=== PATIENT | female | born 1980 | race Caucasian/White ===

== ENCOUNTER 2023-06-18 11:58 | Emergency (ER) | payer BC, OTHER ==
[2023-06-18 12:18] VITALS: TEMP 98.4; O2SAT 100
--- NOTE | 2023-06-18 13:08 | XRAY ---
Indication: Left rib pain following injury. Comparison: None Frontal chest and 2 view left ribs negative for acute fracture or suspicious bone lesions. Chest demonstrates normal heart and lungs with a few right lung calcified granulomas. Bony thorax intact with minimal double curvature scoliosis. Incidental bilateral nipple jewelry and left upper quadrant abdominal suture material.
--- NOTE | 2023-06-18 13:27 | ERPHSYRPT ---
- History of Present Illness Time Seen by Provider: 06/18/23 11:59 Source: patient Exam Limitations: no limitations Patient Subjective Stated Complaint: pt throws her rib out of place occassionally and she was loading a cooler on Thursday at work and threw it out and went to the chiropractor on Thursday and Thursday and he adjusted her and she thinks that maybe a rib got cracked, pt went back on Thursday and the chiropractor taped her ribs Triage Nursing Assessment: Pt brought to the ER by her sister, vitals wnl, rates pain as 5/10, pulses normal, skin n/w/d, hurts to breath and take a deep breath, pt states that it is one of the lower ribs on the left and it hurts on the lateral and back side, pt walked into the ER with a slow steady gait Physician History: 43 years old female with history of scoliosis with occasional chest wall/rib strains after heavy lifting needing chiropractor readjustment presented in the ER after she lifted heavy objects few days ago and seems like she is having some misalignment of her ribs on the left side. Patient denies any midline back pain but pain is more in the posterolateral aspect of left mid to lower chest wall. She has been to chiropractor 3 times but does not seem helping much. It hurts to move, take a deep breath, bend over and better with being still. No difficulty breathing otherwise. No chest pain otherwise. Symptoms are similar to previous. Patient wants to make sure she does not have any fractured ribs. She has Norflex and ibuprofen which did help in the past. Allergies/Adverse Reactions: No Known Drug Allergies Allergy (Verified 06/18/23 12:18) Home Medications: Atomoxetine HCl [Strattera] 25 mg PO DAILY 06/18/23 [History] Buspirone HCl 15 mg PO TID 06/18/23 [History] Cariprazine HCl [Vraylar] 3 mg PO DAILY 06/18/23 [History] Estradiol 1 mg [Estrace 1 mg] 1 mg PO DAILY 06/18/23 [History] Gabapentin [Neurontin] 800 mg PO QID 06/18/23 [History] Orphenadrine Citrate 100 mg [Norflex 100 MG Tablet] 100 mg PO BID 06/18/23 [History] Topiramate 100 mg PO BID 06/18/23 [History] cloNIDine HCL 2 mg PO DAILY 06/18/23 [History] Hx Influenza Vaccination/Date Given: No Hx Pneumococcal Vaccination/Date Given: No Travel Risk - International Travel Have you traveled outside of the country in past 3 weeks: No - Emerging Infectious Disease Are you exhibiting symptoms associated with any current EIDs: No - Review of Systems Constitutional: No Symptoms Ears, Nose, & Throat: No Symptoms Respiratory: No Symptoms Cardiac: Chest Pain Abdominal/Gastrointestinal: No Symptoms Genitourinary Symptoms: No Symptoms Musculoskeletal: No Symptoms Skin: No Symptoms Neurological: No Symptoms Hematologic/Lymphatic: No Symptoms Immunological/Allergic: No Symptoms - Past Medical History Pertinent Past Medical History: Yes Respiratory History: Asthma Psycho-Social History: Anxiety, Depression 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 - Past Surgical History Past Surgical History: Yes Musculoskeletal: Orthopedic Surgery Female Surgical History: Hysterectomy, Section Other Surgical History: back surgery Significant Family History: no pertinent family hx - Female History Hx Now: No - Social History Smoking Status: Current every day smoker Exposure to second hand smoke: Yes Drug Use: marijuana - Nursing Vital Signs Nursing Vital Signs: Initial Vital Signs Temperature 98.4 F 06/18/23 12:09 Pulse Rate 71 06/18/23 12:09 Blood Pressure 117/75 06/18/23 12:09 O2 Sat by Pulse Oximetry 100 06/18/23 12:09 Pain Scale Pain Intensity 5 - Physical Exam General Appearance: no apparent distress, alert Ears, Nose, Throat Exam: normal ENT inspection Neck Exam: normal inspection, non-tender, supple, full range of motion Respiratory Exam: normal breath sounds, chest tenderness (left lateral/posterior mid to lower ribs tenderness), lungs clear Cardiovascular Exam: regular rate/rhythm, normal heart sounds Back Exam: normal inspection, normal range of motion, muscle spasm, No vertebral tenderness Extremity Exam: normal inspection, normal range of motion Neurologic Exam: alert, oriented x 3, cooperative, detail manager II-XII nml as tested Skin Exam: normal color SpO2 Interpretation: normal SpO2: 100 O2 Delivery: Room Air Ordered Tests: Active Orders 24 hr Category Date Time Status RIBS UNILATERAL W/ PA CXR Stat Exams 06/18/23 12:11 Completed Medication Summary Discontinued Medications Generic Name Dose Route Start Last Admin Trade Name Freq PRN Reason Stop Dose Admin Ketorolac Tromethamine 30 mg 06/18/23 13:04 06/18/23 13:40 Ketorolac Tromethamine 30 Mg/Ml Inj IM 06/18/23 13:05 30 mg STAT ONE Administration Ketorolac Tromethamine Confirm 06/18/23 13:40 Ketorolac Tromethamine 30 Mg/Ml Inj Administered 06/18/23 13:41 Dose 30 mg .ROUTE .STK-MED ONE - Progress Progress: improved Progress Note: 06/18/23 13:48 43 years old is evaluated for left rib pain after lifting heavy stuff few days ago. Patient has similar symptoms multiple times in the past. Patient has rib tenderness, no flail segment. Lungs bilateral clear to auscultation. No midline tenderness. No tachypnea or tachycardia. She is given symptomatic treatment for pain. X-rays chest and rib series negative for acute fracture, pneumothorax, hemothorax or any other acute findings. I believe patient has rib/chest wall strain, recommended supportive care and outpatient follow-up. Discussed signs symptoms of worsening needing return to ER which she seems understanding. It is a clear musculoskeletal, do not think needs any other workup. Counseled pt/family regarding: lab results, diagnosis, need for follow-up, rad results Medical Desision Making - Diagnostic Testing Diagnostic test were ordered, analyzed, and reviewed by me: Yes Radiological Interpretation: Interpreted by me, Reviewed by me - Risk of complications The pt has a mod risk of morbidity or mortality based on: Need for prescription drug management - Departure Departure Disposition: Home Clinical Impression: Chest wall muscle strain Condition: Stable Critical Care Time: No Referrals: KALEE MELENDEZ MD [Primary Care Provider] - Follow up/PCP as directed Instructions: Muscle Strain (DC) Additional Instructions: take Tylenol/ibuprofen as needed. Follow-up with primary care for reevaluation. Return to ER for intractable pain, difficulty breathing etc. Prescriptions: Ibuprofen 600 mg PO Q6HPRN PRN 10 Days #20 tablet PRN Reason: Pain
[2023-06-18] MEDS ORDERED: TORAdol 30 mg Injection ONE (13:40)
[2023-06-18] MEDS: TORAdol 30 mg Injection IM ONE (13:40)
[2023-06-18 14:20] VITALS: BP 119/61; PULSE 61
== END 2023-06-18 14:21 | disposition home or self-care (01) ==
LOC: ED 11:58
DX: S29.011A Strain of muscle and tendon of front wall of thorax, initial encounter (principal); R07.81 Pleurodynia
CPT/HCPCS: 71101; 96372; 99283; J1885

== ENCOUNTER 2024-05-05 20:59 | Emergency (ER) | payer BC ==
[2024-05-05 21:09] VITALS: TEMP 98.1
[2024-05-05] MEDS ORDERED: BABY ASPIRIN 81 MG CHEW ONE (21:52)
[2024-05-05] MEDS: BABY ASPIRIN 81 MG CHEW PO ONE (21:53)
[2024-05-05 22:05] LABS: Absolute Neutrophil Ct (ANC) 4.27 x10^3/uL (1.56-6.13); BASOPHIL % 0.5 % (0.1-1.2); Basophil (Absolute #) 0.04 x10^3/uL (0.01-0.08); Eosinophil % 1.7 % (0.7-5.8); Eosinophil (Absolute #) 0.14 x10^3/uL (0.04-0.36); Hematocrit 41.4 % (34.1-44.9); Hemoglobin 14.3 g/dL (11.2-15.7); IMMATURE GRAN # 0.02 x10^3u/L (0.001-0.031); IMMATURE GRAN % 0.2 % (0.001-0.429); Lymphocyte (Absolute #) 2.78 x10^3/uL (1.18-3.74); Lymphocytes % 34.4 % (19.3-51.7); Mean Cell Volume 86.6 fL (79.4-94.8); Mean Corpuscular Hemoglobin 29.9 pg (25.6-32.2); Mean Corpuscular Hgb Concent. 34.5 g/dL (32.2-35.5); Mean Platelet Volume 10.7 fL (9.4-12.3); Monocyte (Absolute #) 0.84 x10^3/uL (0.24-0.86); Monocytes % 10.4 % (4.7-12.5); Neutrophil % 52.8 % (34.0-71.1); Platelet Count 292 x10^3/uL (182-369); Red Blood Count 4.78 x10^6/uL (3.93-5.22); White Blood Count 8.1 x10^3/uL (3.98-10.04)
[2024-05-05 22:14] VITALS: O2SAT 97
[2024-05-05] MEDS ORDERED: DUONEB 0.5-3 MG/3 ml Neb IH ONE (22:20)
[2024-05-05 22:21] LABS: ALBUMIN 4.4 g/dL (3.5-5.0); ANION GAP 12.8 MEQ/L (5-15); BILIRUBIN,TOTAL 0.5 mg/dL (0.2-1.3); Creatinine 1 0.65 mg/dL (0.52-1.04); EST GLOMERULAR FILTRATION RATE 112.7 ML/MIN; MAGNESIUM 2.2 mg/dL (1.6-2.3); Potassium 3.2 mmol/L (3.5-5.1)
[2024-05-05] MEDS: DUONEB 0.5-3 MG/3 ml Neb IH ONE (22:21)
[2024-05-05 22:32] LABS: NT PRO BNPII 84.8 pg/mL (<300); TROPONIN < 0.012 ng/mL (0.000-0.033)
[2024-05-05 22:41] LABS: INFLUENZA A NEGATIVE (NEGATIVE); INFLUENZA B NEGATIVE (NEGATIVE); RESPIRATORY SYNCTIAL VIRUS NEGATIVE (NEGATIVE); SARS-CoV-2 Xpert Express NEGATIVE (NEGATIVE)
--- NOTE | 2024-05-05 22:55 | ERPHSYRPT ---
- History of Present Illness Time Seen by Provider: 05/05/24 21:27 Historian: patient, family Exam Limitations: no limitations Patient Subjective Stated Complaint: "I saw Dr. Melendez today but then after I left I started to get anxious and short of breath. That was about 5 hours ago and it hasn't went away". Triage Nursing Assessment: Pt presents to ER with complaints of shortness of breath and mild chest pains in left chest that began after seeing her PCP Deejay this afternoon around 1600. Pt is alert and oriented x 3. Skin is pink, warm, and dry. Respirations are easy at this time. Afebrile. Pain is rated 2/10 scale, mild and intermittent. Complains of nausea. Denies vomiting and diarrhea. Pt is able to ambulate and communicate without difficulty. Lungs clear, bilateral lower leg swelling noted. Physician History: 43 years old female with history of anxiety/depression/migraine/ADD presented in the ER with complains of sudden onset shortness of breath around 4:30 PM after she saw her primary care followed by his some left-sided chest discomfort. Patient reports dull aching pain in the left chest which lasted for few minutes and started to improve but still have mild discomfort. Reports feeling short of breath earlier while holding conversation but is better now. Denies any palpitations. Denies any recent fever chills or cough. No history of coronary artery disease. No family history of coronary artery disease. No history of DVT or PEs. Nitro Today/Relief: no nitro taken today Aspirin Treatment Today: no aspirin today Allergies/Adverse Reactions: No Known Drug Allergies Allergy (Verified 05/05/24 21:10) Home Medications: Buspirone HCl 15 mg PO TID 06/18/23 [History] Cariprazine HCl [Vraylar] 3 mg PO DAILY 06/18/23 [History] Estradiol 1 mg [Estrace 1 mg] 1 mg PO DAILY 06/18/23 [History] Gabapentin [Neurontin] 800 mg PO BID 06/18/23 [History] Topiramate 100 mg PO BID 06/18/23 [History] Bupropion HCl Xl 150 mg [Wellbutrin XL 150 MG] 150 mg PO DAILY 05/05/24 [History] Hydroxyzine HCl 25 mg [Atarax 25 mg] 25 mg PO Q8H 05/05/24 [History] Methylphenidate HCl [Jornay Pm] 40 mg PO HS 05/05/24 [History] Hx Tetanus, Diphtheria Vaccination/Date Given: No Hx Influenza Vaccination/Date Given: No Hx Pneumococcal Vaccination/Date Given: No Immunizations Up to Date: No Travel Risk - International Travel Have you traveled outside of the country in past 3 weeks: No - Emerging Infectious Disease Are you exhibiting symptoms associated with any current EIDs: Yes Symptoms: Shortness of Breath - Review of Systems Constitutional: No Symptoms Eyes: No Symptoms Ears, Nose, & Throat: No Symptoms Respiratory: Dyspnea Cardiac: Chest Pain Abdominal/Gastrointestinal: No Symptoms Genitourinary Symptoms: No Symptoms Musculoskeletal: No Symptoms Skin: No Symptoms Neurological: No Symptoms Psychological: Anxiety, Depression Endocrine: No Symptoms Hematologic/Lymphatic: No Symptoms - Past Medical History Pertinent Past Medical History: Yes Neurological History: No Pertinent History ENT History: No Pertinent History Cardiac History: No Pertinent History Respiratory History: Asthma Endocrine Medical History: No Pertinent History Musculoskeletal History: No Pertinent History GI Medical History: No Pertinent History History: No Pertinent History Psycho-Social History: Anxiety, Attention Deficit Disorder, Depression Female Reproductive Disorders: No Pertinent History 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 - Past Surgical History Past Surgical History: Yes Neuro Surgical History: No Pertinent History Cardiac: No Pertinent History Respiratory: No Pertinent History Gastrointestinal: Other Genitourinary: No Pertinent History Musculoskeletal: Orthopedic Surgery Female Surgical History: Hysterectomy, Section Other Surgical History: back surgery, x 3, gastric bypass Significant Family History: no pertinent family hx - Female History Hx Last Menstrual Period: N/A Hx Now: (unkn) - Social History Smoking Status: Current every day smoker Exposure to second hand smoke: Yes Drug Use: marijuana - Social Determinants of Health Will the patient participate in the screening: Yes Do you worry about a steady place to live?: No Do you have any problems with any of the following?: No known problems In the past 12 months,have you had to go without utilities?: No Transportation Issues: No Has anyone in your support network made you feel unsafe?: No Have you or anyone in your house had to go w/o enough food: No - Nursing Vital Signs Nursing Vital Signs: Initial Vital Signs Pulse Rate 75 05/05/24 21:01 Respiratory Rate 19 05/05/24 21:01 Blood Pressure 123/78 05/05/24 21:01 O2 Sat by Pulse Oximetry 97 05/05/24 21:01 Pain Scale Pain Intensity 0 - Physical Exam General Appearance: no apparent distress, alert, anxiety Eye Exam: PERRL/EOMI Ears, Nose, Throat Exam: normal ENT inspection Neck Exam: normal inspection, non-tender, supple, full range of motion Respiratory Exam: normal breath sounds, lungs clear Cardiovascular Exam: regular rate/rhythm, normal heart sounds Gastrointestinal/Abdomen Exam: soft, normal bowel sounds, No tenderness Extremity Exam: normal inspection, normal range of motion Neurologic Exam: alert, oriented x 3, cooperative, structural test engineer II-XII nml as tested Skin Exam: normal color SpO2 Interpretation: normal SpO2: 97 O2 Delivery: Room Air Ordered Tests: Active Orders 24 hr Category Date Time Status Senior Systems Engineer STAT Care 05/05/24 21:38 Active EKG-ER Only STAT Care 05/05/24 21:38 Active IV Insertion STAT Care 05/05/24 21:38 Active CHEST 1 VIEW (PORTABLE) Stat Exams 05/05/24 22:58 Taken CBC W DIFF Stat Lab 05/05/24 21:10 Completed CMP Stat Lab 05/05/24 21:10 Completed D-DIMER QUANTITATIVE Stat Lab 05/05/24 21:10 Completed MAGNESIUM Stat Lab 05/05/24 21:10 Completed NT PRO BNPII Stat Lab 05/05/24 21:10 Completed TROPONIN Q4H Lab 05/05/24 21:10 Completed TROPONIN Q4H Lab 05/05/24 23:20 Completed TROPONIN Q4H Lab 05/06/24 01:45 Ordered TROPONIN Q4H Lab 05/06/24 05:45 Ordered Respiratory Therapy Assessment DAILY RT 05/05/24 22:24 Active Medication Summary Discontinued Medications Generic Name Dose Route Start Last Admin Trade Name Freq PRN Reason Stop Dose Admin Albuterol/Ipratropium 3 ml 05/05/24 21:38 05/05/24 22:21 Ipratropium/Albuterol Sulfate 3 Ml Ampul.Neb IH 05/05/24 21:39 3 ml STAT ONE Administration Albuterol/Ipratropium Confirm 05/05/24 22:20 Ipratropium/Albuterol Sulfate 3 Ml Ampul.Neb Administered 05/05/24 22:21 Dose 3 ml IH .STK-MED ONE Aspirin 324 mg 05/05/24 21:38 05/05/24 21:53 Aspirin 81 Mg Tab.Chew PO 05/05/24 21:39 324 mg STAT ONE Administration Aspirin Confirm 05/05/24 21:52 Aspirin 81 Mg Tab.Chew Administered 05/05/24 21:53 Dose 324 mg .ROUTE .STK-MED ONE Ketorolac Tromethamine 30 mg 05/05/24 23:13 05/05/24 23:15 Ketorolac Tromethamine 30 Mg/Ml Inj IV 05/05/24 23:14 30 mg STAT ONE Administration Ketorolac Tromethamine Confirm 05/05/24 23:15 Ketorolac Tromethamine 30 Mg/Ml Inj Administered 05/05/24 23:16 Dose 30 mg .ROUTE .STK-MED ONE Lab/Rad Data: Laboratory Result Diagrams 05/05/24 21:10 05/05/24 21:10 Laboratory Results 05/05/24 05/05/24 05/05/24 Range/Units 23:20 21:50 21:10 WBC (3.98-10.04) x10^3/uL RBC (3.93-5.22) x10^6/uL Hgb (11.2-15.7) g/dL Hct (34.1-44.9) % MCV (79.4-94.8) fL MCH (25.6-32.2) pg MCHC (32.2-35.5) g/dL RDW (11.7-14.4) % Plt Count (182-369) x10^3/uL MPV (9.4-12.3) fL Gran % (34.0-71.1) % Immature Gran % (Auto) (0.001-0.429) % Nucleat RBC Rel Count (0.00-0.2) % Eos # (Auto) (0.04-0.36) x10^3/uL Immature Gran # (Auto) (0.001-0.031) x10^3u/L Absolute Lymphs (auto) (1.18-3.74) x10^3/uL Absolute Monos (auto) (0.24-0.86) x10^3/uL Absolute Nucleated RBC (0.00-0.012) x10^3u/L Lymphocytes % (19.3-51.7) % Monocytes % (4.7-12.5) % Eosinophils % (0.7-5.8) % Basophils % (0.1-1.2) % Absolute Granulocytes (1.56-6.13) x10^3/uL Basophils # (0.01-0.08) x10^3/uL D-Dimer < 0.19 (0.0-0.50) mg/L Sodium (135-145) mmol/L Potassium (3.5-5.1) mmol/L Chloride (98-107) mmol/L Carbon Dioxide (22-30) mmol/L Anion Gap (5-15) MEQ/L BUN (7-17) mg/dL Creatinine (0.52-1.04) mg/dL Estimated GFR ML/MIN Glucose (74-106) mg/dL Calcium (8.4-10.2) mg/dL Magnesium (1.6-2.3) mg/dL Total Bilirubin (0.2-1.3) mg/dL AST (14-36) U/L ALT (0-35) U/L Alkaline Phosphatase (38-126) U/L Troponin I < 0.012 (0.000-0.033) ng/mL NT-Pro-B Natriuret Pep (<300) pg/mL Serum Total Protein (6.3-8.2) g/dL Albumin (3.5-5.0) g/dL Influenza Type A Ag NEGATIVE (NEGATIVE) Influenza Type B Ag NEGATIVE (NEGATIVE) RSV (PCR) NEGATIVE (NEGATIVE) SARS-CoV-2 (PCR) NEGATIVE (NEGATIVE) 05/05/24 05/05/24 05/05/24 Range/Units 21:10 21:10 21:10 WBC 8.1 (3.98-10.04) x10^3/uL RBC 4.78 (3.93-5.22) x10^6/uL Hgb 14.3 (11.2-15.7) g/dL Hct 41.4 (34.1-44.9) % MCV 86.6 (79.4-94.8) fL MCH 29.9 (25.6-32.2) pg MCHC 34.5 (32.2-35.5) g/dL RDW 13.0 (11.7-14.4) % Plt Count 292 (182-369) x10^3/uL MPV 10.7 (9.4-12.3) fL Gran % 52.8 (34.0-71.1) % Immature Gran % (Auto) 0.2 (0.001-0.429) % Nucleat RBC Rel Count 0.0 (0.00-0.2) % Eos # (Auto) 0.14 (0.04-0.36) x10^3/uL Immature Gran # (Auto) 0.02 (0.001-0.031) x10^3u/L Absolute Lymphs (auto) 2.78 (1.18-3.74) x10^3/uL Absolute Monos (auto) 0.84 (0.24-0.86) x10^3/uL Absolute Nucleated RBC 0.00 (0.00-0.012) x10^3u/L Lymphocytes % 34.4 (19.3-51.7) % Monocytes % 10.4 (4.7-12.5) % Eosinophils % 1.7 (0.7-5.8) % Basophils % 0.5 (0.1-1.2) % Absolute Granulocytes 4.27 (1.56-6.13) x10^3/uL Basophils # 0.04 (0.01-0.08) x10^3/uL D-Dimer (0.0-0.50) mg/L Sodium 132 L (135-145) mmol/L Potassium 3.2 L (3.5-5.1) mmol/L Chloride 98 (98-107) mmol/L Carbon Dioxide 25 (22-30) mmol/L Anion Gap 12.8 (5-15) MEQ/L BUN 11 (7-17) mg/dL Creatinine 0.65 (0.52-1.04) mg/dL Estimated GFR 112.7 ML/MIN Glucose 84 (74-106) mg/dL Calcium 9.0 (8.4-10.2) mg/dL Magnesium 2.2 (1.6-2.3) mg/dL Total Bilirubin 0.50 (0.2-1.3) mg/dL AST 32 (14-36) U/L ALT 23 (0-35) U/L Alkaline Phosphatase 55 (38-126) U/L Troponin I < 0.012 (0.000-0.033) ng/mL NT-Pro-B Natriuret Pep 84.8 (<300) pg/mL Serum Total Protein 7.0 (6.3-8.2) g/dL Albumin 4.4 (3.5-5.0) g/dL Influenza Type A Ag (NEGATIVE) Influenza Type B Ag (NEGATIVE) RSV (PCR) (NEGATIVE) SARS-CoV-2 (PCR) (NEGATIVE) - Progress Progress: improved, re-examined Air Movement: good Progress Note: 05/05/24 23:59 43-year-old with history of ADD, anxiety/depression/migraine/tobacco use is evaluated in the ER for transient shortness of breath 5 hours ago with some chest discomfort. Patient has minimal chest discomfort on presentation. Patient is very anxious, does have some element of reproducibility with palpation. She is a low heart score. EKG is normal sinus rhythm with no acute ischemic changes. Has normal white count, fairly unremarkable chemistries, negative troponins x 2 and D-dimers. Chest x-ray is negative for any acute cardiopulmonary findings reviewed by me, final official report is pending. Patient is a low heart score, 2 negative troponin, no acute EKG changes, no acute cardiopulmonary findings on the chest x-ray, do not think patient needs further evaluation in the ER can be discharged with outpatient follow-up. I have shared the results of workup with patient and family and plan of discharge with outpatient follow-up which they understand and agree. Stable for discharge. Blood Culture(s) Obtained: No Antibiotics given: No Counseled pt/family regarding: lab results, diagnosis, need for follow-up, rad results, smoking cessation Medical Desision Making - Independent Historian Additional History obtained from: Family - Diagnostic Testing Diagnostic test were ordered, analyzed, and reviewed by me: Yes Radiological Interpretation: Interpreted by me, Reviewed by me - Risk of complications The pt has a mod risk of morbidity or mortality based on: Need for prescription drug management - Departure Clinical Impression: Atypical chest pain, Anxiety Condition: Stable Critical Care Time: No Referrals: KALEE MELENDEZ MD [Primary Care Provider] - Follow up with PCP 1 day DIONTE CUBA [CONSULTING PHYSICIAN] - Follow up/PCP as directed (Call for appointment for reevaluation) Instructions: Chest pain in adults - ED discharge instructions Additional Instructions: Take Tylenol/ibuprofen as needed. Do not smoke. Follow-up with primary care and cardiology for reevaluation. Return to ER for intractable chest pain or if having difficulty breathing etc.
[2024-05-05] MEDS: TORAdol 30 mg Injection IV ONE (23:15)
[2024-05-05] MEDS ORDERED: TORAdol 30 mg Injection ONE (23:15)
[2024-05-06 00:01] VITALS: BP 108/62; PULSE 80; RESP 18
--- NOTE | 2024-05-06 08:57 | XRAY ---
Indication: Chest pain. Comparison: February 13, 2021 Portable chest again demonstrates normal heart and lungs with incidental right lung calcified granuloma. Bony thorax intact. No new/acute findings.
== END 2024-05-06 | disposition home or self-care (01) ==
LOC: ED 20:59
DX: R07.89 Other chest pain (principal); F41.9 Anxiety disorder, unspecified; R06.02 Shortness of breath; Z79.899 Other long term (current) drug therapy; Z72.0 Tobacco use
CPT/HCPCS: 0241U; 36415; 71045; 80053; 83735; 83880; 84484; 85025; 85379; 93005; 93041; 94640; 96374; 99285; 99284; J1885; A9270-GY

== ENCOUNTER 2024-07-07 10:01 | Day surgery (SDC) | payer BC ==
[2024-07-07] MEDS ORDERED: D50W 50 ml Abboject IV ONE (10:02)
[2024-07-07] MEDS ORDERED: dexAMETHasone sodium phosphate IJ ONE (10:02)
[2024-07-07] MEDS ORDERED: Sodium Chloride 0.9(Preservative Free) 10 ML IJ ONE (10:02)
[2024-07-07] MEDS ORDERED: propofoL IV ONE (12:31)
[2024-07-07] MEDS ORDERED: Xylocaine-Mpf 2% 5 Ml Vial ONE (12:32)
--- NOTE | 2024-07-07 13:21 | XRAY ---
Indication: Left L3-L5 transforaminal NOLBERTO. Intraoperative fluoroscopy for right for 20 seconds. 4 digital spot image submitted for interpretation demonstrates posterior needle tips projecting over expected left L3 and L4 nerve roots. Small amount of contrast injected for needle tip placement. Correlate with intraoperative findings/report.
--- NOTE | 2024-07-07 13:22 | XRAY ---
20 seconds of fluoroscopy were used in surgery for a left L3-L5 transforaminal NOLBERTO.
== END 2024-07-07 12:55 | disposition home or self-care (01) ==
LOC: SDC-PAIN 10:01
PROVIDERS: ATTEND Psychiatry & Neurology Pain Medicine
DX: M54.16 Radiculopathy, lumbar region (principal)
CPT/HCPCS: 64483; 64484; 72100; 82947; J1100; J2704; Q9966

== ENCOUNTER 2024-07-08 12:50 | Emergency (ER) | payer BC ==
[2024-07-08 13:04] VITALS: TEMP 97.6
--- NOTE | 2024-07-08 13:37 | ERPHSYRPT ---
- History of Present Illness Historian: patient Exam Limitations: no limitations Patient Subjective Stated Complaint: Pt c/o of RUQ pain with constipation since Thursday and has taken Miralax, 2 suppositories, 2 doses of 2 oz of mag citrate Triage Nursing Assessment: Pt brought self to the ER, vitals wnl, rates pain as 8/10, pulses normal, skin n/w/d, bowel sounds heard in all 4, pt reports passing gas, small thin bowel produced this morning, pain with palpatation to the upper right and medial abdomen, no difficulties breathing, denies chest pain, nausea, doesn't appear to be in any distress Physician History: Patient has abdominal pain. Has been going on for about 5 or 6 days. She is status post aGastric bypass operation.Edgard said that she has pain mainly in the bladder area. She has had a couple small bowel movements over the last few days. She says that they are extremely small and they had to be forced.She does have symptoms concerning for small bowel obstruction.Has not had any fever or chills. Eating makes the pain worse. Nothing seems to really make it better.She is not throwing up but is nauseated.She has beenUnable to eat much at all.Pain is described as sharp and stabbing. Is mainly in the left upper quadrant and kind of goes over to the epigastric area.The patient has taken some mag citrate as well as suppositories andColace. Activities at Onset: other (Eating) Allergies/Adverse Reactions: bupropion [From Wellbutrin] Allergy (Verified 07/08/24 13:05) Home Medications: Buspirone HCl 15 mg PO TID 06/18/23 [History] Cariprazine HCl [Vraylar] 3 mg PO DAILY 06/18/23 [History] Estradiol 1 mg [Estrace 1 mg] 1 mg PO DAILY 06/18/23 [History] Hydroxyzine HCl 25 mg [Atarax 25 mg] 50 mg PO Q8H 05/05/24 [History] Methylphenidate HCl [Jia Pm] 60 mg PO HS 05/05/24 [History] Chlorthalidone 25 mg PO DAILY 07/08/24 [History] Dextromethorphan HBr/Bupropion [Auvelity ER 45-105 mg Tablet] 1 each PO DAILY 07/08/24 [History] Pregabalin 300 mg PO BID 07/08/24 [History] Hx Tetanus, Diphtheria Vaccination/Date Given: No Hx Influenza Vaccination/Date Given: No Hx Pneumococcal Vaccination/Date Given: No Travel Risk - International Travel Have you traveled outside of the country in past 3 weeks: No - Emerging Infectious Disease Are you exhibiting symptoms associated with any current EIDs: Yes Symptoms: Abdominal Pain - Review of Systems Constitutional: No Symptoms Respiratory: No Symptoms Cardiac: No Symptoms Genitourinary Symptoms: No Symptoms Skin: No Symptoms All Other Systems: Reviewed and Negative - Past Medical History Pertinent Past Medical History: Yes Neurological History: No Pertinent History ENT History: No Pertinent History Cardiac History: No Pertinent History Respiratory History: Asthma Endocrine Medical History: No Pertinent History Musculoskeletal History: No Pertinent History GI Medical History: No Pertinent History History: No Pertinent History Psycho-Social History: Anxiety, Attention Deficit Disorder, Depression Female Reproductive Disorders: No Pertinent History 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 - Past Surgical History Past Surgical History: Yes Neuro Surgical History: No Pertinent History Cardiac: No Pertinent History Respiratory: No Pertinent History Gastrointestinal: Other Genitourinary: No Pertinent History Musculoskeletal: Orthopedic Surgery Female Surgical History: Hysterectomy, Section Other Surgical History: back surgery, x 3, gastric bypass Significant Family History: no pertinent family hx - Female History Hx Last Menstrual Period: N/A Hx Now: No (hysterectomy) - Social History Smoking Status: Current every day smoker Exposure to second hand smoke: Yes Drug Use: marijuana - Social Determinants of Health Will the patient participate in the screening: Yes Do you worry about a steady place to live?: No Do you have any problems with any of the following?: No known problems In the past 12 months,have you had to go without utilities?: No Transportation Issues: No Has anyone in your support network made you feel unsafe?: No Have you or anyone in your house had to go w/o enough food: No - Nursing Vital Signs Nursing Vital Signs: Initial Vital Signs Temperature 97.6 F 07/08/24 12:54 Pulse Rate 94 H 07/08/24 12:54 Blood Pressure 125/79 07/08/24 12:54 O2 Sat by Pulse Oximetry 100 07/08/24 12:54 Pain Scale Pain Intensity 2 - Physical Exam General Appearance: no apparent distress Eye Exam: PERRL/EOMI Respiratory Exam: normal breath sounds Cardiovascular Exam: regular rate/rhythm Gastrointestinal/Abdomen Exam: distention, guarding, other (Patient had some tenderness in the left upper quadrant. It felt a little distended as well.) Pelvic Exam: not done Rectal Exam: deferred Back Exam: normal inspection Neurologic Exam: alert, oriented x 3, cooperative Skin Exam: normal color, warm, dry SpO2: 100 Ordered Tests: Active Orders 24 hr Category Date Time Status IV Insertion STAT Care 07/08/24 14:25 Active ABDOMEN AND PELVIS W CONTRAST [CT] Stat Exams 07/08/24 13:30 Completed CBC W DIFF Stat Lab 07/08/24 13:45 Completed CMP Stat Lab 07/08/24 13:45 Completed LIPASE Stat Lab 07/08/24 13:45 Completed Medication Summary Discontinued Medications Generic Name Dose Route Start Last Admin Trade Name Freq PRN Reason Stop Dose Admin Hydromorphone HCl 1 mg 07/08/24 14:22 07/08/24 14:56 Hydromorphone 1 Mg/1ml Inj IV 07/08/24 14:23 1 mg STAT ONE Administration Hydromorphone HCl Confirm 07/08/24 14:54 Hydromorphone 1 Mg/1ml Inj Administered 07/08/24 14:55 Dose 1 mg .ROUTE .CardiaLen-Natero ONE Lab/Rad Data: Laboratory Result Diagrams 07/08/24 13:45 07/08/24 13:45 Laboratory Results 07/08/24 07/08/24 Range/Units 13:45 13:45 WBC 10.3 H (3.98-10.04) x10^3/uL RBC 4.37 (3.93-5.22) x10^6/uL Hgb 12.5 (11.2-15.7) g/dL Hct 37.4 (34.1-44.9) % MCV 85.6 (79.4-94.8) fL MCH 28.6 (25.6-32.2) pg MCHC 33.4 (32.2-35.5) g/dL RDW 13.7 (11.7-14.4) % Plt Count 257 (182-369) x10^3/uL MPV 10.3 (9.4-12.3) fL Gran % 71.6 H (34.0-71.1) % Immature Gran % (Auto) 0.2 (0.001-0.429) % Nucleat RBC Rel Count 0.0 (0.00-0.2) % Eos # (Auto) 0.02 L (0.04-0.36) x10^3/uL Immature Gran # (Auto) 0.02 (0.001-0.031) x10^3u/L Absolute Lymphs (auto) 2.22 (1.18-3.74) x10^3/uL Absolute Monos (auto) 0.65 (0.24-0.86) x10^3/uL Absolute Nucleated RBC 0.00 (0.00-0.012) x10^3u/L Lymphocytes % 21.5 (19.3-51.7) % Monocytes % 6.3 (4.7-12.5) % Eosinophils % 0.2 L (0.7-5.8) % Basophils % 0.2 (0.1-1.2) % Absolute Granulocytes 7.40 H (1.56-6.13) x10^3/uL Basophils # 0.02 (0.01-0.08) x10^3/uL Sodium 130 L (135-145) mmol/L Potassium 3.7 (3.5-5.1) mmol/L Chloride 94 L (98-107) mmol/L Carbon Dioxide 25 (22-30) mmol/L Anion Gap 14.7 (5-15) MEQ/L BUN 8 (7-17) mg/dL Creatinine 0.49 L (0.52-1.04) mg/dL Estimated GFR 119.9 ML/MIN Glucose 120 H (74-106) mg/dL Calcium 9.0 (8.4-10.2) mg/dL Total Bilirubin 0.30 (0.2-1.3) mg/dL AST 35 (14-36) U/L ALT 32 (0-35) U/L Alkaline Phosphatase 44 (38-126) U/L Serum Total Protein 7.0 (6.3-8.2) g/dL Albumin 4.6 (3.5-5.0) g/dL Lipase 112 (23-300) U/L - Progress Progress: unchanged Progress Note: Patient was stable throughout stay. I was a bit worried about a bowel obstruction. I got a CT it showed that she just has a large stool burden. There is no signs of an obstruction. She had bowel sounds on exam and her abdomen was not horribly tender. Do not think she has a bowel obstruction. I think that she is just constipated. I am going to have her try some Suprep. I would probably have her drink half of the dose tonight and see how she does.She can drink the remainder in the morning if she needs it.Also in the differential was colitis diverticulitis, appendicitis, gastroenteritis. 07/08/24 15:48 Medical Desision Making - Risk of complications Low Risk: Low risk of morbidity from additional dx testing or treatment - Departure Departure Disposition: Home Clinical Impression: Constipation Condition: Stable Critical Care Time: No Referrals: AGNIESZKA HERNANDEZ, LAMINATION INSPECTOR [Primary Care Provider, UNKNOWN] - Follow up/PCP as directed Instructions: Constipation in adults Additional Instructions: Take the Suprep drink this evening before bed
[2024-07-08 13:50] LABS: BASOPHIL % 0.2 % (0.1-1.2); Basophil (Absolute #) 0.02 x10^3/uL (0.01-0.08); Eosinophil % 0.2 % (0.7-5.8); Eosinophil (Absolute #) 0.02 x10^3/uL (0.04-0.36); Hematocrit 37.4 % (34.1-44.9); Hemoglobin 12.5 g/dL (11.2-15.7); IMMATURE GRAN # 0.02 x10^3u/L (0.001-0.031); IMMATURE GRAN % 0.2 % (0.001-0.429); Lymphocyte (Absolute #) 2.22 x10^3/uL (1.18-3.74); Lymphocytes % 21.5 % (19.3-51.7); Mean Cell Volume 85.6 fL (79.4-94.8); Mean Corpuscular Hemoglobin 28.6 pg (25.6-32.2); Mean Corpuscular Hgb Concent. 33.4 g/dL (32.2-35.5); Mean Platelet Volume 10.3 fL (9.4-12.3); Monocyte (Absolute #) 0.65 x10^3/uL (0.24-0.86); Monocytes % 6.3 % (4.7-12.5); Neutrophil % 71.6 % (34.0-71.1); Platelet Count 257 x10^3/uL (182-369); Red Blood Count 4.37 x10^6/uL (3.93-5.22); Red Cell Distribution Width 13.7 % (11.7-14.4); White Blood Count 10.3 x10^3/uL (3.98-10.04)
[2024-07-08 13:53] VITALS: RESP 18
[2024-07-08 14:06] LABS: ALBUMIN 4.6 g/dL (3.5-5.0); ANION GAP 14.7 MEQ/L (5-15); BILIRUBIN,TOTAL 0.3 mg/dL (0.2-1.3); Creatinine 1 0.49 mg/dL (0.52-1.04); EST GLOMERULAR FILTRATION RATE 119.9 ML/MIN; Potassium 3.7 mmol/L (3.5-5.1)
[2024-07-08] MEDS ORDERED: Hydromorphone 1 mg/ml Injection ONE (14:54)
[2024-07-08] MEDS: Hydromorphone 1 mg/ml Injection IV ONE (14:56)
[2024-07-08 15:14] VITALS: PULSE 73
--- NOTE | 2024-07-08 15:36 | XRAY ---
Indication: Pain. Multiple contiguous axial images obtained through the abdomen and pelvis using 80 cc Isovue 370 contrast. Comparison: None Lung bases demonstrates mild bilateral dependent atelectasis and small right lower lobe calcified granuloma. No infiltrate or effusion. Heart not enlarged. Small hiatal hernia. Previous gastric bypass surgery. Noncontrasted stomach and bowel loops appear nonobstructed with normal appendix. There is moderate diffuse scattered colonic fecal debris. Hysterectomy reported. No free fluid/air. Remaining liver, gallbladder, pancreas, spleen, adrenal glands, kidneys, ureters, bladder, and aorta are unremarkable. No pathologic retroperitoneal lymphadenopathy. Osseous structures intact with incidental L4 limbus vertebrae and mild L5-S1 degenerative disc disease. No ventral or inguinal hernias. Impression: Moderate diffuse colonic fecal stasis. L5-S1 degenerative disc disease. Remaining CT abdomen/pelvis with contrast exam is negative.
[2024-07-08 15:51] VITALS: O2SAT 100
[2024-07-08 16:01] VITALS: BP 106/52
== END 2024-07-08 16:02 | disposition home or self-care (01) ==
LOC: ED 12:50
DX: K59.00 Constipation, unspecified (principal); R10.12 Left upper quadrant pain; Z79.899 Other long term (current) drug therapy; Z98.84 Bariatric surgery status; Z72.0 Tobacco use
CPT/HCPCS: 36415; 74177; 80053; 83690; 85025; 96374; 99284; 99285; J1171

== ENCOUNTER 2024-12-19 10:39 | Emergency (ER) | payer BC ==
[2024-12-19 11:00] VITALS: TEMP 97.9
[2024-12-19] MEDS ORDERED: Zofran 4 MG/2 ML VIAL ONE (11:03)
[2024-12-19] MEDS ORDERED: MORPHINE SULFATE 4 MG INJ ONE (11:03)
--- NOTE | 2024-12-19 11:04 | ERPHSYRPT ---
- History of Present Illness Patient Subjective Stated Complaint: patient stated that she has had diarrhea since 0200, patient states that she thought it might have been the food that she had ate, patient states she has a headache and feels twitchy Triage Nursing Assessment: patient presents to ed via private vehicle, patient able to ambulate into ed without complication, patient alert and oriented x 4, skin p/w/d, patient has complaints of abdominal pain and headache, bowel sounds active x 4 quadrants, abdomen soft/nondistended, tender upon palpation; however patient states no more than normal, patient denies chest pain, states she feels a little short of breath, oxygen saturation upon arrival 96% on room air Physician History: Abdominal pain, onset of symptoms yesterday, she has had associated diarrhea, no nausea or vomiting, she has known history of gastric bypass surgery in the past, She also has a severe headache secondary to the pain that she is presenting with Timing/Duration: yesterday Abdominal Pain Onset Location: RUQ, LUQ, epigastric Pain Radiation: no radiation Severity of Pain-Max: severe Severity of Pain-Current: severe Associated Symptoms: denies symptoms Allergies/Adverse Reactions: bupropion [From Wellbutrin] Allergy (Verified 12/19/24 10:53) Home Medications: Buspirone HCl 15 mg PO TID 06/18/23 [History] Cariprazine HCl [Vraylar] 3 mg PO DAILY 06/18/23 [History] Estradiol 1 mg [Estrace 1 mg] 1 mg PO DAILY 06/18/23 [History] Hydroxyzine HCl 25 mg [Atarax 25 mg] 50 mg PO Q8H 05/05/24 [History] Methylphenidate HCl [Joangie Pm] 60 mg PO HS 05/05/24 [History] Chlorthalidone 25 mg PO DAILY 07/08/24 [History] Dextromethorphan HBr/Bupropion [Auvelity ER 45-105 mg Tablet] 1 each PO DAILY 07/08/24 [History] Pregabalin 300 mg PO BID 07/08/24 [History] Hx Tetanus, Diphtheria Vaccination/Date Given: Yes Hx Influenza Vaccination/Date Given: No Hx Pneumococcal Vaccination/Date Given: No Travel Risk - International Travel Have you traveled outside of the country in past 3 weeks: No - Emerging Infectious Disease Are you exhibiting symptoms associated with any current EIDs: No Symptoms: Abdominal Pain - Past Medical History Pertinent Past Medical History: Yes Neurological History: No Pertinent History ENT History: No Pertinent History Cardiac History: No Pertinent History Respiratory History: Asthma Endocrine Medical History: No Pertinent History Musculoskeletal History: No Pertinent History GI Medical History: No Pertinent History History: No Pertinent History Psycho-Social History: Anxiety, Attention Deficit Disorder, Depression Female Reproductive Disorders: No Pertinent History 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 patient on antibiotic at this time for - Past Surgical History Past Surgical History: Yes Neuro Surgical History: No Pertinent History Cardiac: No Pertinent History Respiratory: No Pertinent History Gastrointestinal: Other Genitourinary: No Pertinent History Musculoskeletal: Orthopedic Surgery Female Surgical History: Hysterectomy, Section Other Surgical History: back surgery, x 3, gastric bypass Significant Family History: no pertinent family hx - Female History Hx Last Menstrual Period: N/A Hx Now: No - Social History Smoking Status: Current every day smoker Exposure to second hand smoke: Yes Drug Use: none - Social Determinants of Health Will the patient participate in the screening: Yes Do you worry about a steady place to live?: No Do you have any problems with any of the following?: No known problems In the past 12 months,have you had to go without utilities?: No Transportation Issues: No Has anyone in your support network made you feel unsafe?: No Have you or anyone in your house had to go w/o enough food: No - Nursing Vital Signs Nursing Vital Signs: Initial Vital Signs Temperature 97.9 F 12/19/24 10:39 Pulse Rate 76 12/19/24 10:39 Respiratory Rate 20 12/19/24 10:39 Blood Pressure 125/81 12/19/24 10:39 O2 Sat by Pulse Oximetry 96 12/19/24 10:39 Pain Scale Pain Intensity 4 - Physical Exam General Appearance: no apparent distress, alert Eye Exam: PERRL/EOMI, eyes nml inspection Ears, Nose, Throat Exam: normal ENT inspection, pharynx normal, moist mucous membranes Neck Exam: normal inspection, non-tender, supple, full range of motion Respiratory Exam: normal breath sounds, lungs clear, No respiratory distress Cardiovascular Exam: regular rate/rhythm, normal heart sounds Gastrointestinal/Abdomen Exam: soft, tenderness (upper ), No mass, No guarding, No rebound, No hepatomegaly, No splenomegaly Back Exam: normal inspection, normal range of motion, No CVA tenderness, No vertebral tenderness Extremity Exam: normal inspection, normal range of motion, pelvis stable Neurologic Exam: alert, oriented x 3, cooperative, normal mood/affect, nml cerebellar function, sensation nml, No motor deficits Skin Exam: normal color, warm, dry SpO2 Interpretation: normal SpO2: 97 Ordered Tests: Active Orders 24 hr Category Date Time Status IV Insertion STAT Care 12/19/24 10:59 Active ABDOMEN AND PELVIS W CONTRAST [CT] Stat Exams 12/19/24 10:59 Completed CBC W DIFF Stat Lab 12/19/24 11:35 Completed CMP Stat Lab 12/19/24 11:35 Completed LIPASE Stat Lab 12/19/24 11:35 Completed Medication Summary Discontinued Medications Generic Name Dose Route Start Last Admin Trade Name Freq PRN Reason Stop Dose Admin Sodium Chloride 1,000 mls @ 999 mls/hr 12/19/24 10:59 12/19/24 12:18 Sodium Chloride 0.9% 1000 Ml IV 12/19/24 11:59 Infused .Q1H1M STA Infusion Sodium Chloride Confirm 12/19/24 11:03 Sodium Chloride 0.9% 1000 Ml Administered 12/19/24 11:04 Dose 1,000 mls @ ud .ROUTE .STK-MED ONE Morphine Sulfate 4 mg 12/19/24 10:59 12/19/24 11:17 Morphine Sulfate 4 Mg/Ml Injection IV 12/19/24 11:00 4 mg STAT ONE Administration Morphine Sulfate Confirm 12/19/24 11:03 Morphine Sulfate 4 Mg/Ml Injection Administered 12/19/24 11:04 Dose 4 mg .ROUTE .STK-MED ONE Ondansetron HCl 4 mg 12/19/24 10:59 12/19/24 11:17 Ondansetron Hcl 4 Mg/2 Ml Vial IV 12/19/24 11:00 4 mg STAT ONE Administration Ondansetron HCl Confirm 12/19/24 11:03 Ondansetron Hcl 4 Mg/2 Ml Vial Administered 12/19/24 11:04 Dose 4 mg .ROUTE .STK-MED ONE Lab/Rad Data: Laboratory Result Diagrams 12/19/24 11:35 12/19/24 11:35 Laboratory Results 12/19/24 12/19/24 Range/Units 11:35 11:35 WBC 7.5 (3.98-10.04) x10^3/uL RBC 5.26 H (3.93-5.22) x10^6/uL Hgb 13.5 (11.2-15.7) g/dL Hct 42.6 (34.1-44.9) % MCV 81.0 (79.4-94.8) fL MCH 25.7 (25.6-32.2) pg MCHC 31.7 L (32.2-35.5) g/dL RDW 18.5 H (11.7-14.4) % Plt Count 231 (182-369) x10^3/uL MPV 11.6 (9.4-12.3) fL Gran % 71.6 H (34.0-71.1) % Immature Gran % (Auto) 0.4 (0.001-0.429) % Nucleat RBC Rel Count 0.0 (0.00-0.2) % Eos # (Auto) 0.05 (0.04-0.36) x10^3/uL Immature Gran # (Auto) 0.03 (0.001-0.031) x10^3u/L Absolute Lymphs (auto) 1.40 (1.18-3.74) x10^3/uL Absolute Monos (auto) 0.61 (0.24-0.86) x10^3/uL Absolute Nucleated RBC 0.00 (0.00-0.012) x10^3u/L Lymphocytes % 18.7 L (19.3-51.7) % Monocytes % 8.2 (4.7-12.5) % Eosinophils % 0.7 (0.7-5.8) % Basophils % 0.4 (0.1-1.2) % Absolute Granulocytes 5.36 (1.56-6.13) x10^3/uL Basophils # 0.03 (0.01-0.08) x10^3/uL Sodium 138 (135-145) mmol/L Potassium 3.0 L* (3.5-5.1) mmol/L Chloride 101 (98-107) mmol/L Carbon Dioxide 31 H (22-30) mmol/L Anion Gap 9.2 (5-15) MEQ/L BUN 8 (7-17) mg/dL Creatinine 0.63 (0.52-1.04) mg/dL Estimated GFR 112.8 ML/MIN Glucose 107 H (74-106) mg/dL Calcium 9.1 (8.4-10.2) mg/dL Total Bilirubin 0.30 (0.2-1.3) mg/dL AST 39 H (14-36) U/L ALT 28 (0-35) U/L Alkaline Phosphatase 63 (38-126) U/L Serum Total Protein 7.4 (6.3-8.2) g/dL Albumin 4.3 (3.5-5.0) g/dL Lipase 113 (23-300) U/L - Progress Progress Note: 12/19/24 13:[address] and lab results, recommend outpatient follow-up and treatment - Departure Departure Disposition: Home Clinical Impression: Hypokalemia due to excessive gastrointestinal loss of potassium Abdominal pain Qualifiers: Abdominal location: generalized Qualified Code(s): R10.84 - Generalized abdominal pain Condition: Fair Critical Care Time: No Referrals: AGNIESZKA HERNANDEZ, TUBE CLEANER [Primary Care Provider, UNKNOWN] - Follow up with PCP 4 days Instructions: Abdominal pain, Hypokalemia Additional Instructions: Clear liquid diet for 24 hours, follow-up primary care doctor if symptoms persist this week Prescriptions: Dicyclomine HCl 20 mg [Bentyl 20 mg] 20 mg PO TID #12 tablet Potassium Chloride 20 meq PO DAILY #7 tablet
[2024-12-19] MEDS: MORPHINE SULFATE 4 MG INJ IV ONE (11:17)
[2024-12-19] MEDS: Zofran 4 MG/2 ML VIAL IV ONE (11:17)
[2024-12-19 11:37] LABS: BASOPHIL % 0.4 % (0.1-1.2); Basophil (Absolute #) 0.03 x10^3/uL (0.01-0.08); Eosinophil (Absolute #) 0.05 x10^3/uL (0.04-0.36); Hematocrit 42.6 % (34.1-44.9); Hemoglobin 13.5 g/dL (11.2-15.7); IMMATURE GRAN # 0.03 x10^3u/L (0.001-0.031); IMMATURE GRAN % 0.4 % (0.001-0.429); Lymphocyte (Absolute #) 1.40 x10^3/uL (1.18-3.74); Mean Corpuscular Hemoglobin 25.7 pg (25.6-32.2); Mean Corpuscular Hgb Concent. 31.7 g/dL (32.2-35.5); Monocyte (Absolute #) 0.61 x10^3/uL (0.24-0.86); NUCLEATED RBC # 0.00 x10^3u/L (0.00-0.012); NUCLEATED RBC % 0.0 % (0.00-0.2); Platelet Count 231 x10^3/uL (182-369); Red Blood Count 5.26 x10^6/uL (3.93-5.22); White Blood Count 7.5 x10^3/uL (3.98-10.04)
[2024-12-19 11:53] LABS: Calcium 9.1 mg/dL (8.4-10.2); Carbon Dioxide 31.0 mmol/L (22-30); Creatinine 1 0.63 mg/dL (0.52-1.04); EST GLOMERULAR FILTRATION RATE 112.8 ML/MIN; Glucose 107.0 mg/dL (74-106); SGOT/AST 39.0 U/L (14-36); SGPT/ALT 28.0 U/L (0-35); Total Protein 7.4 g/dL (6.3-8.2)
[2024-12-19 11:56] LABS: Potassium 3.0 mmol/L (3.5-5.1)
--- NOTE | 2024-12-19 13:33 | XRAY ---
Indication: Pain. Multiple contiguous axial images obtained through the abdomen and pelvis using 80 cc Isovue 370 contrast. Comparison: July 08, 2024 Lung bases remain clear. Heart not enlarged. Stable small hiatal hernia. Again previous gastric bypass surgery. Noncontrasted stomach and bowel loops remain nonobstructed with normal appendix. Again hysterectomy. No free fluid/air. Remaining liver, gallbladder, pancreas, spleen, adrenal glands, kidneys, ureters, bladder, and aorta are unremarkable. No pathologic retroperitoneal lymphadenopathy. Osseous structures intact with stable L4 limbus vertebrae and L5-S1 degenerative disc disease. No ventral or inguinal hernias. Impression: Again small hiatal hernia and L5-S1 degenerative disc disease. Remaining CT abdomen/pelvis with contrast exam is normal.
[2024-12-19] MEDS ORDERED: Klor Con ONE (14:03)
[2024-12-19] MEDS: Klor Con PO ONE (14:04)
[2024-12-19 14:16] VITALS: BP 120/69; PULSE 72; RESP 18; O2SAT 98
== END 2024-12-19 14:17 | disposition home or self-care (01) ==
LOC: ED 10:39
DX: E87.6 Hypokalemia (principal); R10.84 Generalized abdominal pain; R19.7 Diarrhea, unspecified; R51.9 Headache, unspecified; Z79.899 Other long term (current) drug therapy; Z98.84 Bariatric surgery status; Z72.0 Tobacco use

== ENCOUNTER 2025-01-08 18:22 | Emergency (ER) | payer BC ==
[2025-01-08 18:39] VITALS: TEMP 97.7
[2025-01-08 19:29] LABS: BASOPHIL % 0.6 % (0.1-1.2); Basophil (Absolute #) 0.04 x10^3/uL (0.01-0.08); Eosinophil (Absolute #) 0.17 x10^3/uL (0.04-0.36); Hematocrit 39.1 % (34.1-44.9); Hemoglobin 12.3 g/dL (11.2-15.7); IMMATURE GRAN # 0.01 x10^3u/L (0.001-0.031); IMMATURE GRAN % 0.1 % (0.001-0.429); Lymphocyte (Absolute #) 2.37 x10^3/uL (1.18-3.74); Mean Corpuscular Hemoglobin 26.0 pg (25.6-32.2); Mean Corpuscular Hgb Concent. 31.5 g/dL (32.2-35.5); Monocyte (Absolute #) 0.64 x10^3/uL (0.24-0.86); NUCLEATED RBC # 0.00 x10^3u/L (0.00-0.012); NUCLEATED RBC % 0.0 % (0.00-0.2); Platelet Count 221 x10^3/uL (182-369); Red Blood Count 4.73 x10^6/uL (3.93-5.22); White Blood Count 6.8 x10^3/uL (3.98-10.04)
[2025-01-08 19:32] LABS: HCG URINE TEST NEGATIVE (NEGATIVE)
[2025-01-08 19:35] LABS: Glucose, Urine Negative (Negative); Protein,Urine Dip Negative (Negative); RBC 0-2 /HPF (0-5); WBC 0-2 /HPF (0-5)
[2025-01-08 19:41] LABS: Calcium 8.6 mg/dL (8.4-10.2); Carbon Dioxide 28 mmol/L (22-30); Creatinine 1 0.62 mg/dL (0.52-1.04); EST GLOMERULAR FILTRATION RATE 113.3 ML/MIN; Glucose 88 mg/dL (74-106); Potassium 3.9 mmol/L (3.5-5.1); SGOT/AST 34 U/L (14-36); Total Protein 7.2 g/dL (6.3-8.2)
[2025-01-08 19:42] LABS: SGPT/ALT 25 U/L (0-35)
[2025-01-08] MEDS ORDERED: TORAdol 30 mg Injection ONE ×2 (19:50)
[2025-01-08] MEDS ORDERED: Zofran 4 MG/2 ML VIAL ONE (19:50)
[2025-01-08] MEDS: Zofran 4 MG/2 ML VIAL IV ONE (19:53)
[2025-01-08] MEDS: TORAdol 30 mg Injection IV ONE (19:53)
[2025-01-08 19:54] LABS: Amphetamine,Urine NEGATIVE (NEGATIVE); Barbiturate,Urine NEGATIVE (NEGATIVE); Benzodiazepine,Urine NEGATIVE (NEGATIVE); Cocaine,Urine NEGATIVE (NEGATIVE); Methadone,Urine NEGATIVE (NEGATIVE); Opiate,Urine NEGATIVE (NEGATIVE); PCP,Urine NEGATIVE (NEGATIVE); THC,Urine NEGATIVE (NEGATIVE)
--- NOTE | 2025-01-08 19:58 | ERPHSYRPT ---
- History of Present Illness Time Seen by Provider: 01/08/25 19:09 Source: patient Exam Limitations: no limitations Patient Subjective Stated Complaint: constipation x 4 days Triage Nursing Assessment: Presents to ER bed 8 ambulatory. Changed into gown, placed on monitor. Skin pwd, A &Ox3. Reports constipation x 4 days. Reports has taken 4 doses of miralax in that time frame but has only had very small incomplete BM's. Last BM 01/07/2025 am. Abdomen soft, TTP. States most pain is in lower abdomen, but also has some pain in LUQ up into rib cage. Abdomen is somewhat distended.Bowels sounds present in all 4 quadrants. Physician History: Patient is here with abdominal pain. Patient states that she has had constipation for 4 days. Patient does have a history of IBS. States that she is on a bowel regime. Constipation, follows with GI, has had a normal endoscopy and colonoscopy in the last few months. Patient states that the pain radiates up into the left upper quadrant. No other injuries falls, trauma. Allergies/Adverse Reactions: bupropion [From Wellbutrin] Allergy (Verified 12/19/24 10:53) Home Medications: Buspirone HCl 15 mg PO TID 06/18/23 [History] Cariprazine HCl [Vraylar] 3 mg PO DAILY 06/18/23 [History] Estradiol 1 mg [Estrace 1 mg] 1 mg PO DAILY 06/18/23 [History] Hydroxyzine HCl 25 mg [Atarax 25 mg] 50 mg PO Q8H 05/05/24 [History] Methylphenidate HCl [Jia Pm] 60 mg PO HS 05/05/24 [History] Chlorthalidone 25 mg PO DAILY 07/08/24 [History] Dextromethorphan HBr/Bupropion [Auvelity ER 45-105 mg Tablet] 1 each PO DAILY 07/08/24 [History] Pregabalin 300 mg PO BID 07/08/24 [History] Hx Tetanus, Diphtheria Vaccination/Date Given: Yes Hx Influenza Vaccination/Date Given: No Hx Pneumococcal Vaccination/Date Given: No Travel Risk - International Travel Have you traveled outside of the country in past 3 weeks: No - Emerging Infectious Disease Are you exhibiting symptoms associated with any current EIDs: No Symptoms: Abdominal Pain - Past Medical History Pertinent Past Medical History: Yes Neurological History: No Pertinent History ENT History: No Pertinent History Cardiac History: No Pertinent History Respiratory History: Asthma Endocrine Medical History: No Pertinent History Musculoskeletal History: No Pertinent History GI Medical History: No Pertinent History History: No Pertinent History Psycho-Social History: Anxiety, Attention Deficit Disorder, Depression Female Reproductive Disorders: No Pertinent History 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 patient on antibiotic at this time for - Past Surgical History Past Surgical History: Yes Neuro Surgical History: No Pertinent History Cardiac: No Pertinent History Respiratory: No Pertinent History Gastrointestinal: Other Genitourinary: No Pertinent History Musculoskeletal: Orthopedic Surgery Female Surgical History: Hysterectomy, Section Other Surgical History: back surgery, x 3, gastric bypass Significant Family History: no pertinent family hx - Female History Hx Last Menstrual Period: N/A Hx Now: No - Social History Smoking Status: Current every day smoker Exposure to second hand smoke: Yes Drug Use: none - Social Determinants of Health Will the patient participate in the screening: Yes Do you worry about a steady place to live?: No Do you have any problems with any of the following?: No known problems In the past 12 months,have you had to go without utilities?: No Transportation Issues: No Has anyone in your support network made you feel unsafe?: No Have you or anyone in your house had to go w/o enough food: No - Nursing Vital Signs Nursing Vital Signs: Initial Vital Signs Temperature 97.7 F 01/08/25 18:29 Pulse Rate 81 01/08/25 18:29 Respiratory Rate 16 01/08/25 18:29 Blood Pressure 143/84 01/08/25 18:29 O2 Sat by Pulse Oximetry 100 01/08/25 18:29 Pain Scale Pain Intensity 2 - Physical Exam SpO2 Interpretation: normal SpO2: 100 Comments: 01/08/25 19:55 Review of Systems Constitutional: Negative for fever. HENT: Negative for congestion. Respiratory: Negative for shortness of breath. Cardiovascular: Negative for chest pain. Gastrointestinal: Abdominal pain Genitourinary: Negative for dysuria. Musculoskeletal: Negative for back pain. Skin: Negative for rash. Neurological: Negative for headaches. Psychiatric/Behavioral: Negative for behavioral problems. All other systems reviewed and are negative. Physical Exam Vitals signs and nursing note reviewed. Constitutional: Appearance: Patient is well-developed. HENT: Head: Normocephalic and atraumatic. Eyes: Conjunctiva/sclera: Conjunctivae normal. Neck: Musculoskeletal: Normal range of motion. Trachea: No tracheal deviation. Cardiovascular: Rate and Rhythm: Normal rate. Heart sounds normal. Pulmonary: Effort: Pulmonary effort is normal. No respiratory distress. Abdominal: Palpations: Abdomen is soft. No rebound or guarding Musculoskeletal: General: No deformity. Skin: General: Skin is warm and dry. Neurological/ Psychiatric: Mental Status: Mental status, behavior, interaction with environment is appropriate for patient's age and condition - Course Nursing assessment & vital signs reviewed: Yes EKG Interpreted by Me: Sinus Rhythm (EKG shows sinus rhythm, rate of 65, LA interval 159, QRS 91, QTc is 434, no STEMI or other ST changes) Ordered Tests: Active Orders 24 hr Category Date Time Status EKG-ER Only STAT Care 01/08/25 19:09 Active IV Insertion STAT Care 01/08/25 19:09 Active ABDOMEN AND PELVIS W CONTRAST [CT] Stat Exams 01/08/25 19:11 Completed CBC W DIFF Stat Lab 01/08/25 19:26 Completed CMP Stat Lab 01/08/25 19:26 Completed HCG QUALITATIVE, URINE Stat Lab 01/08/25 19:26 Completed LIPASE Stat Lab 01/08/25 19:26 Completed Lactic Acid Stat Lab 01/08/25 19:18 Completed UA W/RFX UR CULTURE Stat Lab 01/08/25 19:26 Completed Urine Triage Profile Stat Lab 01/08/25 19:26 Completed Medication Summary Generic Name Dose Route Start Last Admin Trade Name Freq PRN Reason Stop Dose Admin Morphine Sulfate 2 mg 01/08/25 22:14 01/09/25 02:08 Morphine Sulfate 4 Mg/Ml Injection IV 01/13/25 22:13 2 mg Q2H PRN PRN Administration SEVERE PAIN Discontinued Medications Generic Name Dose Route Start Last Admin Trade Name Freq PRN Reason Stop Dose Admin Sodium Chloride 1,000 mls @ 999 mls/hr 01/08/25 19:09 01/08/25 22:15 Sodium Chloride 0.9% 1000 Ml IV 01/08/25 20:09 Infused .Q1H1M STA Infusion Sodium Chloride Confirm 01/08/25 19:50 Sodium Chloride 0.9% 1000 Ml Administered 01/08/25 19:51 Dose 1,000 mls @ ud .ROUTE .STK-MED ONE Ketorolac Tromethamine 30 mg 01/08/25 19:09 01/08/25 19:53 Ketorolac Tromethamine 30 Mg/Ml Inj IV 01/08/25 19:10 30 mg STAT ONE Administration Ketorolac Tromethamine Confirm 01/08/25 19:50 Ketorolac Tromethamine 30 Mg/Ml Inj Administered 01/08/25 19:51 Dose 30 mg .ROUTE .STK-MED ONE Ketorolac Tromethamine Confirm 01/08/25 19:50 Ketorolac Tromethamine 30 Mg/Ml Inj Administered 01/08/25 19:51 Dose 30 mg .ROUTE .STK-MED ONE Ondansetron HCl 4 mg 01/08/25 19:09 01/08/25 19:53 Ondansetron Hcl 4 Mg/2 Ml Vial IV 01/08/25 19:10 4 mg STAT ONE Administration Ondansetron HCl Confirm 01/08/25 19:50 Ondansetron Hcl 4 Mg/2 Ml Vial Administered 01/08/25 19:51 Dose 4 mg .ROUTE .STK-MED ONE Lab/Rad Data: Laboratory Result Diagrams 01/08/25 19:26 01/08/25 19:26 Laboratory Results 01/08/25 01/08/25 01/08/25 Range/Units 19:26 19:26 19:26 WBC (3.98-10.04) x10^3/uL RBC (3.93-5.22) x10^6/uL Hgb (11.2-15.7) g/dL Hct (34.1-44.9) % MCV (79.4-94.8) fL MCH (25.6-32.2) pg MCHC (32.2-35.5) g/dL RDW (11.7-14.4) % Plt Count (182-369) x10^3/uL MPV (9.4-12.3) fL Gran % (34.0-71.1) % Immature Gran % (Auto) (0.001-0.429) % Nucleat RBC Rel Count (0.00-0.2) % Eos # (Auto) (0.04-0.36) x10^3/uL Immature Gran # (Auto) (0.001-0.031) x10^3u/L Absolute Lymphs (auto) (1.18-3.74) x10^3/uL Absolute Monos (auto) (0.24-0.86) x10^3/uL Absolute Nucleated RBC (0.00-0.012) x10^3u/L Lymphocytes % (19.3-51.7) % Monocytes % (4.7-12.5) % Eosinophils % (0.7-5.8) % Basophils % (0.1-1.2) % Absolute Granulocytes (1.56-6.13) x10^3/uL Basophils # (0.01-0.08) x10^3/uL Sodium (135-145) mmol/L Potassium (3.5-5.1) mmol/L Chloride (98-107) mmol/L Carbon Dioxide (22-30) mmol/L Anion Gap (5-15) MEQ/L BUN (7-17) mg/dL Creatinine (0.52-1.04) mg/dL Estimated GFR ML/MIN Glucose (74-106) mg/dL Lactic Acid (0.4-2.0) Calcium (8.4-10.2) mg/dL Total Bilirubin (0.2-1.3) mg/dL AST (14-36) U/L ALT (0-35) U/L Alkaline Phosphatase (38-126) U/L Serum Total Protein (6.3-8.2) g/dL Albumin (3.5-5.0) g/dL Lipase (23-300) U/L Urine Color Yellow (Yellow) Urine Appearance Clear (Clear) Urine pH 7.0 (4.6-8.0) Ur Specific [place] <=1.005 (1.005-1.030) Urine Protein Negative (Negative) Urine Glucose (UA) Negative (Negative) mg/dL Urine Ketones Negative (Negative) Urine Blood Negative (Negative) Urine Nitrite Negative (Negative) Urine Bilirubin Negative (Negative) Urine Urobilinogen 0.2 (0.2) mg/dL Ur Leukocyte Esterase Negative (Negative) U Hyaline Cast (Auto) NONE SEEN (0-2) /LPF Urine Microscopic RBC 0-2 (0-5) /HPF Urine Microscopic WBC 0-2 (0-5) /HPF Ur Epithelial Cells None Seen (None Seen) /HPF Urine Bacteria None Seen (None Seen) /HPF Urine Culture Reflexed NO (NO) Urine HCG, Qual NEGATIVE (NEGATIVE) Urine Opiates Level NEGATIVE (NEGATIVE) Ur Methadone NEGATIVE (NEGATIVE) Urine Barbiturates NEGATIVE (NEGATIVE) Ur Phencyclidine (PCP) NEGATIVE (NEGATIVE) Urine Amphetamine NEGATIVE (NEGATIVE) U Benzodiazepine Level NEGATIVE (NEGATIVE) Urine Cocaine NEGATIVE (NEGATIVE) Urine Marijuana (THC) NEGATIVE (NEGATIVE) 01/08/25 01/08/25 01/08/25 Range/Units 19:26 19:26 19:18 WBC 6.8 (3.98-10.04) x10^3/uL RBC 4.73 (3.93-5.22) x10^6/uL Hgb 12.3 (11.2-15.7) g/dL Hct 39.1 (34.1-44.9) % MCV 82.7 (79.4-94.8) fL MCH 26.0 (25.6-32.2) pg MCHC 31.5 L (32.2-35.5) g/dL RDW 19.9 H (11.7-14.4) % Plt Count 221 (182-369) x10^3/uL MPV 10.8 (9.4-12.3) fL Gran % 52.6 (34.0-71.1) % Immature Gran % (Auto) 0.1 (0.001-0.429) % Nucleat RBC Rel Count 0.0 (0.00-0.2) % Eos # (Auto) 0.17 (0.04-0.36) x10^3/uL Immature Gran # (Auto) 0.01 (0.001-0.031) x10^3u/L Absolute Lymphs (auto) 2.37 (1.18-3.74) x10^3/uL Absolute Monos (auto) 0.64 (0.24-0.86) x10^3/uL Absolute Nucleated RBC 0.00 (0.00-0.012) x10^3u/L Lymphocytes % 34.8 (19.3-51.7) % Monocytes % 9.4 (4.7-12.5) % Eosinophils % 2.5 (0.7-5.8) % Basophils % 0.6 (0.1-1.2) % Absolute Granulocytes 3.59 (1.56-6.13) x10^3/uL Basophils # 0.04 (0.01-0.08) x10^3/uL Sodium 139 (135-145) mmol/L Potassium 3.9 (3.5-5.1) mmol/L Chloride 105 (98-107) mmol/L Carbon Dioxide 28 (22-30) mmol/L Anion Gap 9.3 (5-15) MEQ/L BUN 7 (7-17) mg/dL Creatinine 0.62 (0.52-1.04) mg/dL Estimated GFR 113.3 ML/MIN Glucose 88 (74-106) mg/dL Lactic Acid 0.8 (0.4-2.0) Calcium 8.6 (8.4-10.2) mg/dL Total Bilirubin < 0.10 L (0.2-1.3) mg/dL AST 34 (14-36) U/L ALT 25 (0-35) U/L Alkaline Phosphatase 64 (38-126) U/L Serum Total Protein 7.2 (6.3-8.2) g/dL Albumin 4.4 (3.5-5.0) g/dL Lipase 138 (23-300) U/L Urine Color (Yellow) Urine Appearance (Clear) Urine pH (4.6-8.0) Ur Specific [place] (1.005-1.030) Urine Protein (Negative) Urine Glucose (UA) (Negative) mg/dL Urine Ketones (Negative) Urine Blood (Negative) Urine Nitrite (Negative) Urine Bilirubin (Negative) Urine Urobilinogen (0.2) mg/dL Ur Leukocyte Esterase (Negative) U Hyaline Cast (Auto) (0-2) /LPF Urine Microscopic RBC (0-5) /HPF Urine Microscopic WBC (0-5) /HPF Ur Epithelial Cells (None Seen) /HPF Urine Bacteria (None Seen) /HPF Urine Culture Reflexed (NO) Urine HCG, Qual (NEGATIVE) Urine Opiates Level (NEGATIVE) Ur Methadone (NEGATIVE) Urine Barbiturates (NEGATIVE) Ur Phencyclidine (PCP) (NEGATIVE) Urine Amphetamine (NEGATIVE) U Benzodiazepine Level (NEGATIVE) Urine Cocaine (NEGATIVE) Urine Marijuana (THC) (NEGATIVE) - Progress Progress: improved Progress Note: 01/08/25 19:57 Differential diagnosis includes kidney stone, compression fracture, infection, UTI, triple AAA - basic labs including: CBC, lipase, CMP, UA, UPT - insert IV for symptom management - consider imaging: CT ab/pelvis or U/S - EKG shows no ST changes my interpretation Reevaluation Patient feels improved with medication. 01/08/25 20:55 IMPRESSION: 1. New interval development of telescoping of a jejunal loop and omentum in an adjacent jejunal loop underneath the anterior abdominal wall in the left lower quadrant, representing transient intussusception, without signs of proximal obstruction. 2. Stable small sliding hiatus hernia. CT scan as above, I did discuss with our on-call general surgeon, Dr. Huynh. Patient has a previous history of gastric bypass. Given this, he recommended transfer back to original location. This was [facility], Dr. Charity Archibald MD. I called the transfer center, awaiting callback. 01/08/25 21:22 Patient accepted for transfer to [facility]. Currently awaiting a hospital bed. Accepted by Dr. Sebastian Eddy. 01/08/25 21:29 I called [facility] to see if patient could be transferred sooner than tomorrow as [facility] does not anticipate having beds till tomorrow. I was told by transfer center that all [facility] are on high capacity diversion. This includes [facility] which is at capacity. No other bariatric beds were available. 01/09/25 01:30 I did reexamine the patient's abdomen, continues to be soft, no signs of a surgical abdomen at this point in time. Patient resting comfortably, no pain. Patient continues to be hemodynamically stable. 01/09/25 03:47 I checked on patient, she is resting comfortably, has no complaints. States that she is a little bit thirsty. However, we will hold off on advancing diet until we can confirm that transitional intussusception has passed. Continue close ER monitoring. 01/09/25 05:26 Patient has been assigned a bed by [facility]. We have arranged for transport at 8 AM. Will continue to monitor closely. Counseled pt/family regarding: lab results, diagnosis, need for follow-up, rad results - Departure Departure Disposition: Transfer Clinical Impression: Intussusception, History of gastric bypass, Nausea and vomiting Condition: Stable Critical Care Time: No Referrals: AGNIESZKA HERNANDEZ, [employer] [Primary Care Provider, UNKNOWN] - Follow up/PCP as directed
--- NOTE | 2025-01-08 20:16 | XRAY ---
CLINICAL HISTORY: abdominal pain COMPARISON: CT dated 12/19/2024. TECHNIQUE: CT of the abdomen and pelvis was performed with the following protocol: axial images and reconstructed coronal and sagittal images. Intravenous contrast 80 cc Isovue 370 was administered. One of the following dose reduction techniques was utilized for this exam: automated exposure control, adjustment of the mA and/or kV according to patient size, and use of iterative reconstruction. FINDINGS: Sections of the lower thorax show a stable, small sliding hiatus hernia. The 6 x 5 mm old calcified granuloma in the right lower lobe is noted; the sections were not included in the prior study. Abdomen: Gastrointestinal tract: There are postsurgical changes in the stomach and small bowel loops on the left side, consistent with post-gastric bypass status. There is a new interval development of telescoping of a jejunal loop and omentum in an adjacent jejunal loop underneath the anterior abdominal wall in the left lower quadrant, representing transient intussusception, without signs of proximal obstruction. The rest of the visualized bowel loops appear unremarkable. The appendix appears unremarkable. Liver: The liver measures 16 cm craniocaudally with normal density. No focal lesions, cysts, or masses are identified. Gallbladder and Biliary System: The gallbladder is distended. No radiodense gallstones are identified. Pancreas: The pancreatic head, body, and tail are visualized and appear normal in size and density. Spleen: The spleen is normal in size, shape, and density. No splenic lesions or masses are identified. Kidneys and Adrenal Glands: Both kidneys are normal in size. No renal calculi or hydronephrosis are present. The adrenal glands are unremarkable. Pelvis: Urinary Bladder: The urinary bladder is distended. Post-hysterectomy status. No adnexal lesions are identified. Peritoneal and Retroperitoneal Structures: No free fluid or abnormal fluid collections are identified within the abdomen or pelvis. Subcentimetric mesenteric nodes are noted. Bones and Soft Tissues: Redemonstration of L4 limbus vertebra with severe reduction of the L5-S1 intervertebral disc space and associated posterior disc osteophyte complex. Stable small umbilical hernia. IMPRESSION: 1. New interval development of telescoping of a jejunal loop and omentum in an adjacent jejunal loop underneath the anterior abdominal wall in the left lower quadrant, representing transient intussusception, without signs of proximal obstruction. 2. Stable small sliding hiatus hernia. Electronically Signed by: Alex Najera MD. (01/08/2025 20:14:44 EST)
[2025-01-08] MEDS ORDERED: MORPHINE SULFATE 2 MG INJ IV PRN (21:41)
[2025-01-08] MEDS ORDERED: MORPHINE SULFATE 4 MG INJ ONE (22:17)
[2025-01-08] MEDS: MORPHINE SULFATE 4 MG INJ IV PRN (22:18)
[2025-01-09] MEDS ORDERED: MORPHINE SULFATE 4 MG INJ ONE ×3 (02:07→08:40)
[2025-01-09] MEDS: MORPHINE SULFATE 4 MG INJ IV ONE (08:41)
[2025-01-09 08:45] VITALS: RESP 13
[2025-01-09 09:09] VITALS: BP 110/59; PULSE 50; O2SAT 98
== END 2025-01-09 10:24 | disposition short-term general hospital (02) ==
LOC: ED 18:22
DX: K56.1 Intussusception (principal); Z98.84 Bariatric surgery status; R11.2 Nausea with vomiting, unspecified; R10.12 Left upper quadrant pain; K59.00 Constipation, unspecified; Z79.899 Other long term (current) drug therapy; Z72.0 Tobacco use